=== PATIENT | male | born 1995 | race Caucasian/White ===

== ENCOUNTER 2025-02-09 21:27 | Emergency (ER) | payer OTHER ==
[~2025-02-09] VITALS: Ht 170.2 cm; Wt 86.2 kg
[2025-02-09] MEDS ORDERED: TETANUS & DIPHTHERIA TOX,ADULT 0.5 ML VIAL IM ONE (21:45)
[2025-02-09] MEDS ORDERED: VISTARIL50 MG/ML IM (21:48)
[2025-02-09] MEDS ORDERED: ATARAX25 MG PO (21:49)
[2025-02-09] MEDS ORDERED: VENLAFAXINE HC150 M1 PO (21:50)
[2025-02-09] MEDS ORDERED: DIVALPROEX SOD500 M1 PO (21:50)
[2025-02-09] MEDS ORDERED: VENLAFAXINE HCL75 M1 PO (21:50)
== END 2025-02-09 22:47 | disposition home or self-care (01) ==
LOC: ER 21:28
DX: S91.322A Laceration with foreign body, left foot, initial encounter (principal); W45.8XXA Other foreign body or object entering through skin, initial encounter; Y93.89 Activity, other specified; Y92.89 Other specified places as the place of occurrence of the external cause
CPT/HCPCS: 90471; 90714; J1670